=== PATIENT | male | born 1980 | race Caucasian/White ===

== ENCOUNTER 2020-11-02 14:57 | Outpatient (CLI) | payer OTHER, SELFPAY ==
--- NOTE | ~2020-11-02 | XR_ITS ---
EXAMINATION: XR foot LT min 3V EXAM DATE: 11/02/2020 15:31 INDICATION: Pain to left foot, ankle for one month. TECHNIQUE: Left foot dorsoplantar, lateral and oblique projections obtained and reviewed. There is n o prior study for comparison. FINDINGS: Left metatarsal bones unremarkable. No periosteal reaction or band of sclerosis to sugge st subacute stress fracture. There are no bony erosions identified. There are no acute fractures or d islocations identified. There is no subcutaneous gas. The soft tissue is unremarkable. There are no radiopaque foreign bodies. IMPRESSION: 1. Unremarkable left foot exam. Reviewed, dictated and finalized at location A.
== END 2020-11-02 14:58 | disposition home or self-care (01) ==
LOC: ANHIMG 15:06
DX: M79.672 Pain in left foot (principal)
CPT/HCPCS: 73630

== ENCOUNTER 2021-06-26 16:35 | Outpatient (CLI) | payer OTHER, SELFPAY ==
--- NOTE | ~2021-06-26 | MR_ITS ---
EXAMINATION: MR foot LT wo con DATE: 06/26/2021 17:42 INDICATION: Left foot and ankle pain TECHNIQUE: 1. Magnetic resonance imaging (MRI) of the left mid and hindfoot was performed without intravenous co ntrast. Sequences included sagittal, coronal, and axial proton-density weighted fast spin echo withou t and with fat saturation. COMPARISON: None. FINDINGS: Medial ankle ligaments: Deep and superficial deltoid ligaments as well as the spring ligament are normal. Lateral ankle ligaments: The anterior and posterior inferior tibiofibular ligaments are normal. The anterior talofibular, calc aneofibular and posterior talofibular ligaments are normal. Mid/forefoot ligaments: The Lis Franc ligament complex is normal. The collateral ligament complexes at the metatarsophalangea l and interphalangeal joints are normal. Tendons: Achilles tendon is normal. The peroneus longus and brevis tendons are normal. The tibialis anterior a nd extensor hallucis longus and extensor digitorum longus tendons are normal. The tibialis posterior, flexor digitorum longus and flexor hallucis longus tendons are normal. Plantar fascia: There is thickening and mild increased signal of the proximal plantar aponeurosis consistent with mil d enthesopathy. Bones/other: Small low signal intensity bone island at the talar dome. Otherwise normal bone marrow signal through out. No fracture, reactive edema or pathologic marrow replacing process. Mild osteoarthritis at the f irst metatarsophalangeal joint. Remaining joint spaces are normal. Visualized musculature is unremark able. Fluid: Physiologic amount of fluid in the joint spaces. Mild subcutaneous edema about the medial and lateral ankle and extending over the dorsum of the foot. IMPRESSION: 1. Mild to moderate enthesopathy at the proximal plantar aponeurosis. 2. Mild osteoarthritis at the first metatarsophalangeal joint. Reviewed, dictated and finalized at location A.
== END 2021-06-26 16:36 | disposition home or self-care (01) ==
LOC: ANHIMG 16:51
PROVIDERS: Visit Provider Nurse Practitioner Family
DX: M19.072 Primary osteoarthritis, left ankle and foot (principal); M77.9 Enthesopathy, unspecified
CPT/HCPCS: 73718